=== PATIENT | female | born 1970 ===

== ENCOUNTER 2022-02-09 12:30 | Inpatient (IN) | payer OTHER ==
[~2022-02-09] VITALS: Ht 160 cm; Wt 72.6 kg
[2022-02-09] MEDS ORDERED: MEGEST PO (13:51)
[2022-02-12] MEDS ORDERED: MEGESTROL ACETA20 MG (13:15)
[2022-02-12] MEDS ORDERED: MEDROXYPRO150 MG/11 (13:16)
== END 2022-02-13 14:13 | disposition home or self-care (01) | DRG 743 ==
LOC: SURH 02-12 07:18 → O/R 02-12 07:18 → SURG 02-12 12:30 → SURH 02-12 18:05
PROVIDERS: ADMIT Obstetrics & Gynecology; ATTEND Obstetrics & Gynecology
PROC: 0UT24ZZ Resection of Bilateral Ovaries, Percutaneous Endoscopic Approach (ICD-10-PCS; 2022-02-12)
PROC: 0UT74ZZ Resection of Bilateral Fallopian Tubes, Percutaneous Endoscopic Approach (ICD-10-PCS; 2022-02-12)
PROC: 0DNP4ZZ Release Rectum, Percutaneous Endoscopic Approach (ICD-10-PCS; 2022-02-12)
PROC: 0UT94ZZ Resection of Uterus, Percutaneous Endoscopic Approach (ICD-10-PCS; principal; 2022-02-12 13:15)
DX: D25.9 Leiomyoma of uterus, unspecified (principal); N85.01 Benign endometrial hyperplasia; Z20.822 Contact with and (suspected) exposure to COVID-19; N73.6 Female pelvic peritoneal adhesions (postinfective)